=== PATIENT | male | born 1985 | race Hispanic/Latino ===

== ENCOUNTER 2019-11-10 21:18 | Emergency (ER) | payer OTHER ==
[2019-11-10] MEDS ORDERED: TRAMADOL HCL 50 MG TABLET ONE (22:31)
== END 2019-11-10 22:47 | disposition home or self-care (01) ==
LOC: EDH 21:18
DX: S62.234A Other nondisplaced fracture of base of first metacarpal bone, right hand, initial encounter for closed fracture (principal); Y04.0XXA Assault by unarmed brawl or fight, initial encounter; Y93.89 Activity, other specified; Y92.69 Other specified industrial and construction area as the place of occurrence of the external cause; Y99.8 Other external cause status
CPT/HCPCS: 29125; 73140

== ENCOUNTER 2020-03-09 17:25 | Emergency (ER) | payer OTHER ==
[2020-03-09] MEDS ORDERED: LIDOCAINE 5% TOPICAL PATCH TP ONE (18:17)
[2020-03-09] MEDS ORDERED: KETOROLAC TROMETHAMINE 60 MG/2 ML VIAL ONE (18:17)
[2020-03-09] MEDS ORDERED: MORPHINE SULFATE 4 MG/1ML SYG ONE (18:17)
[2020-03-09 18:26] LABS: BASOPHILS % (AUTO) 0.3 % (0.0-5.0); EOSINOPHILS % (AUTO) 1.3 % (0.0-8.0); HEMATOCRIT 43.7 % (42-54); LYMPHOCYTES % (AUTO) 24.2 % (21.0-51.0); MEAN CORPUSCULAR HEMOGLOBIN 28.5 pg (27.0-33.0); MEAN CORPUSCULAR VOLUME 86.4 fL (79-99); NEUTROPHILS % (AUTO) 68.8 % (40.0-77.0); PLATELET COUNT (AUTO) 365 K/uL (130-400); RED BLOOD CELL COUNT(AUTO) 5.06 MIL/uL (4.50-6.20); WHITE BLOOD COUNT (AUTO) 14.5 K/uL (4.8-10.8)
[2020-03-09 18:31] LABS: APPEARANCE,URINE Cloudy (CLEAR); BILIRUBIN,URINE Negative (NEGATIVE); COLOR,URINE Yellow (YELLOW); GLUCOSE, URINE (UA) Negative (NEGATIVE); KETONES,URINE Negative (NEGATIVE); LEUKOCYTE ESTERASE ,URINE Small (NEGATIVE); NITRATE,URINE Negative (NEGATIVE); OCCULT BLOOD,URINE Trace (NEGATIVE); PROTEIN,URINE Trace mg/dL (NEGATIVE)
[2020-03-09 18:36] LABS: CREATININE 1.1 mg/dL (0.5-1.5); POTASSIUM 4.1 mmol/L (3.5-5.1)
[2020-03-09 18:41] LABS: BILIRUBIN,TOTAL 0.3 mg/dL (0.2-1.0); TOTAL PROTEIN, SERUM 7.8 g/dL (6.0-8.3)
[2020-03-09 18:58] LABS: BACTERIA,URINE Moderate /HPF (None Seen); MUCUS,URINE Few LPF (None Seen); SQUAMOUS EPITHELIAL CELL,UR Few /HPF (0-2)
[2020-03-09] MEDS ORDERED: SODIUM CHLORIDE 0.9% 1000ML 1,000 ML IV ONE (20:06)
[2020-03-09] MEDS ORDERED: IOHEXOL-350 75 ML VIAL IV ONE (20:44)
[2020-03-09] MEDS ORDERED: HYDROMORPHONE 1 MG/1 ML AMP ONE (21:04)
== END 2020-03-09 22:24 | disposition home or self-care (01) ==
LOC: EDH 17:25
DX: S23.41XA Sprain of ribs, initial encounter (principal); S20.212A Contusion of left front wall of thorax, initial encounter; M94.0 Chondrocostal junction syndrome [Tietze]; Z72.0 Tobacco use; W18.39XA Other fall on same level, initial encounter; Y93.61 Activity, american tackle football; Y92.39 Other specified sports and athletic area as the place of occurrence of the external cause; Y99.8 Other external cause status
CPT/HCPCS: 36415; 71101; 74177; 80053; 81001; 83690; 85025; 87088; 96361; 96372 ×2; 96374; 99285; J1170; J1885; J2270; J7030; Q9967

== ENCOUNTER 2022-06-09 10:44 | Emergency (ER) | payer OTHER ==
[~2022-06-09] VITALS: Ht 172.7 cm; Wt 122.0 kg
[2022-06-09 11:01] VITALS: BP 142/88
[2022-06-09 11:26] LABS: APPEARANCE,URINE CLEAR (CLEAR); BILIRUBIN,URINE NEGATIVE (NEGATIVE); COLOR,URINE YELLOW (YELLOW); GLUCOSE, URINE (UA) NEGATIVE (NEGATIVE); KETONES,URINE NEGATIVE (NEGATIVE); LEUKOCYTE ESTERASE ,URINE 75 Leu/uL (NEGATIVE); NITRATE,URINE NEGATIVE (NEGATIVE); OCCULT BLOOD,URINE SMALL (NEGATIVE); PROTEIN,URINE 50 mg/dL (NEGATIVE); UROBILINOGEN,URINE 0.2 mg/dL (0.2-1.0)
[2022-06-09] MEDS ORDERED: KETOROLAC 60 MG VIAL (30MG/ML) IM ONE (11:30)
[2022-06-09 11:42] LABS: BACTERIA,URINE Few /HPF (None Seen); SQUAMOUS EPITHELIAL CELL,UR 0-2 /HPF (0-2); WBC,URINE 0-1 /HPF (0-1)
[2022-06-09] MEDS ORDERED: CEPHALEXIN 500 MG CAPSULE PO ONE (12:00)
[2022-06-09] MEDS ORDERED: NAPR-1180 PO (12:22)
[2022-06-09] MEDS ORDERED: CEFU500T67 PO (12:22)
== END 2022-06-09 12:53 | disposition home or self-care (01) ==
LOC: EDH 10:44
DX: N49.2 Inflammatory disorders of scrotum (principal); N50.811 Right testicular pain; Z98.890 Other specified postprocedural states
CPT/HCPCS: 99285; 87077; 87088; 87186; 81001; 76870; 96372; J1885

== ENCOUNTER 2022-06-13 12:20 | Emergency (ER) | payer OTHER ==
[~2022-06-13 12:20] MED LIST: CEFU500T67 PO; NAPR-1180 PO
== END 2022-06-13 12:25 | disposition left against medical advice (07) ==
LOC: EDH 12:20
DX: R31.9 Hematuria, unspecified (principal); Z53.21 Procedure and treatment not carried out due to patient leaving prior to being seen by health care provider